=== PATIENT | female | born 2000 | race Two or more races ===

== ENCOUNTER 2021-04-13 16:04 | Outpatient (CLI) | payer OTHER | END 2021-04-14 10:48 | disposition home or self-care (01) | LOC: OBS/DEL 16:04 | PROVIDERS: ATTEND Obstetrics & Gynecology | DX: O98.813 Other maternal infectious and parasitic diseases complicating pregnancy, third trimester (principal); B37.89 Other sites of candidiasis; Z3A.35 35 weeks gestation of pregnancy ==

== ENCOUNTER 2021-05-14 10:13 | Inpatient (IN) | payer OTHER ==
[~2021-05-14] VITALS: Ht 154.9 cm; Wt 71.7 kg
[2021-05-14] MEDS ORDERED: PRENATAL CAPLE1 EAC1 PO (11:05)
== END 2021-05-16 15:13 | disposition home or self-care (01) | DRG 807 ==
LOC: OB/GYN 10:13 → LDR 10:13 → OB/GYN 23:30
PROVIDERS: ADMIT Obstetrics & Gynecology; ATTEND Obstetrics & Gynecology
PROC: 10E0XZZ Delivery of Products of Conception, External Approach (ICD-10-PCS; principal; 2021-05-14)
PROC: 10907ZC Drainage of Amniotic Fluid, Therapeutic from Products of Conception, Via Natural or Artificial Opening (ICD-10-PCS; 2021-05-14)
PROC: 4A1HXCZ Monitoring of Products of Conception, Cardiac Rate, External Approach (ICD-10-PCS; 2021-05-14)
PROC: 3E033VJ Introduction of Other Hormone into Peripheral Vein, Percutaneous Approach (ICD-10-PCS; 2021-05-14)
PROC: 3E0P7VZ Introduction of Hormone into Female Reproductive, Via Natural or Artificial Opening (ICD-10-PCS; 2021-05-14)
DX: O80 Encounter for full-term uncomplicated delivery (principal); Z37.0 Single live birth; Z3A.39 39 weeks gestation of pregnancy

== ENCOUNTER 2022-06-20 16:16 | Emergency (ER) | payer OTHER ==
[~2022-06-20] VITALS: Ht 154.9 cm; Wt 57.2 kg
[~2022-06-20 16:16] MED LIST: PRENATAL CAPLE1 EAC1 PO
== END 2022-06-20 21:53 | disposition home or self-care (01) ==
LOC: ER 16:16
DX: R05.9 Cough, unspecified (principal); Z91.041 Radiographic dye allergy status; Z91.040 Latex allergy status; Z91.013 Allergy to seafood; Z20.822 Contact with and (suspected) exposure to COVID-19

== ENCOUNTER 2022-11-18 13:22 | Inpatient (IN) | payer OTHER ==
[~2022-11-18] VITALS: Ht 152.4 cm; Wt 68.9 kg
== END 2022-11-20 13:59 | disposition home or self-care (01) | DRG 807 ==
LOC: LDR 13:22 → OB/GYN 19:15
PROVIDERS: ADMIT Obstetrics & Gynecology; ATTEND Obstetrics & Gynecology
PROC: 10E0XZZ Delivery of Products of Conception, External Approach (ICD-10-PCS; principal; 2022-11-18)
PROC: 4A1HXCZ Monitoring of Products of Conception, Cardiac Rate, External Approach (ICD-10-PCS; 2022-11-18)
DX: O99.824 Streptococcus B carrier state complicating childbirth (principal); Z37.0 Single live birth; Z3A.39 39 weeks gestation of pregnancy; Z20.822 Contact with and (suspected) exposure to COVID-19